=== PATIENT | female | born 1960 | race Caucasian/White ===

== ENCOUNTER 2019-01-12 16:19 | Emergency (ER) | payer OTHER ==
[~2019-01-12] VITALS: Ht 157.5 cm; Wt 112.0 kg
[2019-01-12 16:26] VITALS: Ht 157.5 cm; Wt 112.0 kg
[2019-01-12 18:35] VITALS: BP 152/68
== END 2019-01-12 18:35 | disposition home or self-care (01) ==
LOC: ED 16:19
DX: J06.9 Acute upper respiratory infection, unspecified (principal); Z88.0 Allergy status to penicillin; Z98.890 Other specified postprocedural states

== ENCOUNTER → 2019-01-19 | Outpatient (CLI) | payer OTHER | END | disposition home or self-care (01) | LOC: RD 17:28 | DX: M54.5 Low back pain (principal) ==